=== PATIENT | female | born 1950 | race Caucasian/White ===

== ENCOUNTER 2016-11-15 11:14 | Inpatient (IN) | payer OTHER ==
[2016-10-14 11:06] VITALS: BMI 28.0
--- NOTE | 2016-10-14 11:33 | PAT Medication Instructions ---
Service Date Oct 14, 2016. Current Home Medication List B-Complex W/ Folic Acid (Super B Complex Maxi), 1 TAB PO QPM Cholecalciferol (Vitamin D3), 1 TAB PO QPM Fish Oil (Ankeny-3), 2 CAP PO QPM Hydroxyzine Pamoate (Vistaril), 1 CAP PO PRN Multivitamin (Multivitamin), 1 TAB PO QPM Sennosides-Docusate Sodium (Stool Softener), 1 TAB PO PRN Tramadol (Ultram), 50-100 MG PO Q4-6H Medication Instructions For Your Scheduled Surgery - Hold the following medications 2 weeks prior to surgery: Fish Oil (Ankeny-3), 2 CAP PO QPM - Take the following medications the morning of surgery with a sip of water OTHERWISE NOTHING TO EAT OR DRINK AFTER MIDNIGHT: Tramadol (Ultram), 50-100 MG PO Q4-6H (may take up to 4 hours prior to surgery if needed) - Take the following medications as scheduled the night before surgery: Multivitamin (Multivitamin), 1 TAB PO QPM B-Complex W/ Folic Acid (Super B Complex Maxi), 1 TAB PO QPM Cholecalciferol (Vitamin D3), 1 TAB PO QPM Hydroxyzine Pamoate (Vistaril), 1 CAP PO PRN Sennosides-Docusate Sodium (Stool Softener), 1 TAB PO PRN Tramadol (Ultram), 50-100 MG PO Q4-6H If you have any questions please call us at [phone] (Hoda Johnson PA-C) or [phone] or [phone]
--- NOTE | 2016-10-14 12:41 | DIAGNOSTIC IMAGING REPORT ---
CHEST PREADMISSION(PA/LAT) CLINICAL HISTORY: Preoperative evaluation. COMPARISON STUDY: No previous studies for comparison. FINDINGS: Lung volumes are normal. Lungs are clear. There is no pneumothorax or pleural effusion. Pulmonary vascularity is normal. Cardiac size is normal. Mediastinal contours are normal. There are cholecystectomy clips. IMPRESSION: No acute cardiopulmonary findings. Electronically signed by: Akin Moody M.D. 10/14/2016 12:39 PM Dictated Date/Time: 10/14/2016 12:38 PM
[2016-10-14 12:51] LABS: BASO % 0.4 %; BASO ABS # 0.04 K/uL (0-0.2); COMPLETE YES; EOS % 0.5 %; HEMATOCRIT 41.1 % (37-47); IG% 0.2 %; LYMPH % 22.1 %; LYMPH ABS # 2.31 K/uL (1.2-3.4); MEAN CELL VOLUME 92.6 fL (80-100); MEAN CORPUSCULAR HEMOGLOBIN 31.8 pg (25-34); MEAN CORPUSCULAR HGB CONC 34.3 g/dl (32-36); MONO % 9.5 %; NEUT % 67.3 %; PLATELET COUNT 393 K/uL (130-400); RED BLOOD COUNT 4.44 M/uL (4.2-5.4); WHITE BLOOD COUNT 10.46 K/uL (4.8-10.8)
[2016-10-14 13:01] LABS: URINE APPEARANCE CLEAR (CLEAR); URINE BILIRUBIN NEG (NEG); URINE COLOR YELLOW; URINE EPITHELIAL CELL AUTO >30 /lpf (0-5); URINE NITRITE NEG (NEG); URINE SPECIFIC GRAVITY 1.013 (1.000-1.030); UROBILINOGEN NEG (NEG); ZZUR CULT IF INDIC CLEAN CATCH YES
[2016-10-14 13:06] LABS: MANUAL MICROSCOPIC REQUIRED? NO; REVIEW REQ? NO
[2016-10-14 13:09] LABS: PARTIAL THROMBOPLASTIN RATIO 1.1; PROTHROMBIN TIME (PATIENT) 10.3 SECONDS (9.0-12.0)
[2016-10-14 13:51] LABS: BUN/CREATININE RATIO 21.4 (10-20); CALCIUM 9.6 mg/dl (8.5-10.1); CREATININE 0.75 mg/dl (0.60-1.20); POTASSIUM 4.8 mmol/L (3.5-5.1)
--- NOTE | 2016-11-12 10:14 | HISTORY & PHYSICAL EXAMINATION ---
DATE OF ADMISSION: 11/15/2016 CHIEF COMPLAINT: Bilateral knee pain. HISTORY OF PRESENT ILLNESS: Ms. Holloway is a 66-year-old female with a multiple-year history of pain in both of her knees. She states the right is worse than the left. She rates her pain a 10/10. She has pain with her daily activities. She has limited standing and walking tolerance. Pain is worse with weightbearing. The patient has had injections, tramadol, anti-inflammatories and bracing without relief. She has failed conservative treatment and is scheduled for right knee replacement. PAST MEDICAL HISTORY: Benign. She denies heart disease, diabetes or DVT. PAST SURGICAL HISTORY: Cholecystectomy. SOCIAL HISTORY: The patient denies alcohol use. She smokes quarter pack of cigarettes x45 years. She lives in a single story home. She is and retired. FAMILY HISTORY: The patient is adopted. MEDICATIONS: Tramadol 50 mg p.r.n., multivitamin 1 daily, vitamin D3 1000 international units daily, fish oil 1200 mg 2 daily, super B complex 1 daily, stool softener p.r.n., hydroxyzine 25 mg p.r.n. ALLERGIES: Antibiotic ointment causes redness. REVIEW OF SYSTEMS: See HPI. Ten other systems reviewed, all negative. PHYSICAL EXAMINATION: VITAL SIGNS: Height 5 foot 4, weight 162 pounds. BMI is 28. GENERAL: This is a well-developed, well-nourished female who is alert and oriented x3. Mood and affect are appropriate. HEAD, EYES, EARS, NOSE, AND THROAT: Normocephalic, atraumatic. Mucous membranes are moist and intact. NECK: Supple without lymphadenopathy. HEART: Regular rate and rhythm without murmurs, rubs or gallops. LUNGS: Clear to auscultation without wheezes or rhonchi. ABDOMEN: Soft and nontender. Bowel sounds are equal and active. EXTREMITIES: No ecchymosis, redness or warmth. She has varus deformity. Range of motion is from 5-105 degrees with +1 to 2 laxity. X-RAY EXAMINATION: AP and lateral views show joint space narrowing and osteophyte formation. IMPRESSION: Degenerative joint disease, right knee. PLAN: The patient will be admitted for a right total knee arthroplasty. We will plan on aspirin for DVT prophylaxis. The patient is doing [facility] for home physical therapy.
[~2016-11-15] VITALS: Ht 162.6 cm; Wt 73.6 kg
[2016-11-15] VITALS (9 sets, daily range): BP systolic 102–132; BP diastolic 59–82; PULSE 60–83; TEMP 36.4–36.7; O2SAT 92–98; Ht 162.6 cm; Wt 73.6 kg
[2016-11-15] MEDS: TRANEXAMIC ACID INJ 1,000 MG in SODIUM CHLORIDE 0.9% 100ML 100 ML IV SCH ×2 (06:30→15:14)
[~2016-11-15 11:14] MED LIST: ACETAMINOPHEN 500 MG TAB PO SCH; ATROPINE SULFATE 0.1 MG/ML 5ML SYR IV PRN; B-CO-25 PO; BUPIVACAINE 0.25% 30 ML VIAL ONE; BUPIVACAINE 0.5 % 5 MG/1 ML PF 10ML VIAL ONE; CEFAZOLIN 2000 MG/60 ML D5W 60 ML IV SCH; CHOL1000 PO; CeleBREX 200 MG CAP PO SCH; DEXAMETHASONE 4 MG TAB PO SCH; EpHEDrine SULFATE INJ 50 MG/ML AMP IV PRN; FAMOTIDINE 20 MG TAB PO SCH; FENTANYL CITRATE INJ 50 MCG/1 ML 2 ML VIAL IV PRN; GABAPENTIN 300 MG CAP PO SCH; HYDR25CA PO; LACTATED RINGER'S 1000ML 1,000 ML IV SCH; LACTATED RINGER'S 1000ML 500 ML IV ONE; METOCLOPRAMIDE HCL 10 MG TAB PO SCH; MULT-506 PO; OMEG10007 PO; ONDANSETRON INJ 2 MG/ML 2 ML VIAL IV PRN; OXYCODONE HCL 10 MG TABCR (OXYCONTIN) PO SCH; POLYMYXIN B SULFATE 100,000 UNITS in NSS 100ML IR SCH; ROPIVACAINE 5MG/ML 30 ML 150 MG, BUPIVACAINE/EPINEPHR 0.5% MPF 30 ML, KETOROLAC TROMETH... INFIL SCH; SENNTAB23 PO; TRAM-10 PO; VANCOMYCIN INJ 400 MG in NSS 100ML IR SCH
[2016-11-15] MEDS ORDERED: LIDOCAINE HCL 2% 2 ML VIAL (20MG/ML) ONE (13:30)
[2016-11-15] MEDS ORDERED: MIDAZOLAM HCL 1 MG/ML 2ML VIAL ONE (13:30)
[2016-11-15] MEDS ORDERED: PROPOFOL IV EMULSION 10 MG/ML 20 ML VIAL IV ONE (13:30)
[2016-11-15] MEDS ORDERED: FENTANYL CITRATE INJ 50 MCG/1 ML 2 ML VIAL ONE (13:30)
--- NOTE | 2016-11-15 13:47 | History & Physical Bridge Note ---
H&P Re-Evaluation Bridge Note: I have examined the patient, reviewed the History & Physical and in the interval since the performance of the History & Physical I have noted the following changes of clinical significance: No changes noted
[2016-11-15] MEDS ORDERED: BUPIVACAINE/EPINEPHRINE 0.25% 1:200,000 30 ML VIAL ONE (14:18)
[2016-11-15] MEDS ORDERED: ORTHO JOINT ANESTHETIC ONE (14:18)
[2016-11-15] MEDS ORDERED: BACITRACIN 50000 UNIT VIAL ONE (14:18)
[2016-11-15] MEDS ORDERED: POVIDONE-IODINE OP SOLN 30 ML BTL ONE (14:18)
--- NOTE | 2016-11-15 16:33 | [facility] Post Operative Brief Note ---
Immediate Operative Summary Operative Date Nov 15, 2016. Pre-Operative Diagnosis degenerative joint disease, right knee Post-Operative Diagnosis same Procedure(s) Performed right total knee arthroplasty, cemented Surgeon Dr. Avelina Willson [employer] Associate Surgeon(s) Hannah Benavides PA-C Estimated Blood Loss 75ml Findings DJD Specimens A. right knee bone and tissue, permanent Complication(s) None Disposition Recovery Room / PACU
[2016-11-15] MEDS ORDERED: BISACODYL 10 MG SUPP PR PRN (16:45)
[2016-11-15] MEDS ORDERED: TRAMADOL HCL 50 MG TAB PO PRN ×2 (16:45)
[2016-11-15] MEDS ORDERED: MoRPHine SULFATE 2 MG/ML CARP IV PRN (16:45)
[2016-11-15] MEDS ORDERED: ONDANSETRON INJ 2 MG/ML 2 ML VIAL IV PRN (16:45)
[2016-11-15] MEDS ORDERED: METOCLOPRAMIDE HCL INJ 5 MG/ML 2 ML VIAL IV PRN (16:45)
[2016-11-15] MEDS ORDERED: hydrOXYzine HCL 25 MG TAB PO PRN ×2 (16:45→19:45)
[2016-11-15] MEDS ORDERED: ZOLPIDEM TARTRATE 5 MG TAB PO PRN (16:45)
[2016-11-15] MEDS ORDERED: SOD PHOSPHATE/SOD BIPHOSPHATE ENEMA 132 ML BTL PR PRN (16:45)
[2016-11-15] MEDS ORDERED: KETOROLAC TROMETHAMINE 15 MG/ML VIAL IV. PRN (16:45)
[2016-11-15] MEDS ORDERED: DiphenhydrAMINE HCL 50 MG/ML VIAL IV PRN (16:45)
[2016-11-15] MEDS ORDERED: ALUMINUM/MAGNESIUM/SIMETH (MAALOX MAX) 30 ML UDC PO PRN (16:45)
[2016-11-15] MEDS ORDERED: MAGNESIUM HYDROXIDE SUSP 30 ML UDC PO PRN (16:45)
--- NOTE | 2016-11-15 17:26 | Anesthesiology Progress Note ---
Anesthesia Post Op Note Date & Time Nov 15, 2016 at 17:26 Vital Signs Pain Intensity: 0 Vital Signs Past 12 Hours Date Time Temp Pulse Resp B/P Pulse Ox O2 Delivery O2 Flow Rate FiO2 11/15/16 17:10 70 19 113/63 96 Nasal Cannula 2 11/15/16 17:01 36.3 74 16 106/63 97 Nasal Cannula 2 11/15/16 11:36 36.6 83 18 132/82 97 Room Air Notes Mental Status: alert / awake / arousable, participated in evaluation Pt Amnestic to Procedure: Yes Nausea / Vomiting: adequately controlled Pain: adequately controlled Airway Patency, RR, SpO2: stable & adequate BP & HR: stable & adequate Hydration State: stable & adequate Neuraxial Anesthesia: was administered, sensory block is resolving Anesthetic Complications: no major complications apparent
--- NOTE | 2016-11-15 17:27 | DIAGNOSTIC IMAGING REPORT ---
TWO VIEWS RIGHT KNEE CLINICAL HISTORY: Postoperative examination. FINDINGS: AP and crosstable lateral portable views of the right knee are obtained. A right knee arthroplasty is in near anatomic alignment. There has been undersurface remodeling of the patella. No acute fracture is seen. There are expected postoperative changes around the knee including a surgical drain, soft tissue edema, and subcutaneous gas. IMPRESSION: Expected postoperative changes status post right knee arthroplasty. No acute fracture is seen. Electronically signed by: Tre Sosa M.D. 11/15/2016 5:25 PM Dictated Date/Time: 11/15/2016 5:25 PM
[2016-11-15] MEDS: D5W AND 1/2NSS + 20MEQ KCL 1,000 ML IV SCH (19:33)
[2016-11-15] MEDS: OXYCODONE HCL 10 MG TABCR (OXYCONTIN) PO SCH (20:42)
[2016-11-15] MEDS ORDERED: CHOLECALCIFEROL 1000 INTER.UNIT TAB PO SCH (21:00)
[2016-11-15] MEDS ORDERED: SENNA 8.6 MG TAB PO SCH (21:00)
[2016-11-15] MEDS: ASPIRIN 81 MG ECTAB PO SCH (21:03)
[2016-11-15] MEDS: ACETAMINOPHEN 500 MG TAB PO SCH (21:04)
--- NOTE | 2016-11-15 21:58 | OPERATIVE REPORT ---
DATE OF OPERATION: 11/15/2016 PREOPERATIVE DIAGNOSIS: Degenerative arthritis, right knee. POSTOPERATIVE DIAGNOSIS: Same. PROCEDURE: Right total knee with patient matched implant. SURGEON: Dr. Willson. TIRE LAYER: SENDY Rosario. ANESTHESIA: Spinal. BLOOD LOSS: 75 mL. REPLACEMENT FLUIDS: 1600 mL crystalloid. DRAINS: Hemovac x2. CULTURES: None. COMPLICATIONS: None. COMPONENTS USED: [employer] Knee System: Femur size 5, tibia size 4 x 10, patella size 35. NOTE: SENDY Rosario was present and assisted throughout due to the complicated nature of this case. He helped with preparation and set up, first assisted throughout and personally closed the capsule, subcutaneous and skin layers and applied the postoperative dressing. DESCRIPTION: Following satisfactory spinal, the patient was supine. A tourniquet was placed but not inflated. The lower extremity was prepared with ChloraPrep and draped sterilely. Following a surgical time-out, a midline incision was made with a trivector approach, the knee showed severe grade 4 changes throughout and the anterior cruciate ligament was essentially nonexistent. The posterior cruciate ligament was excised, the patient matched femoral block was applied, femoral distal rotation and resection were set and completed and the 4-in-1 block was used to finish preparation of the femur. The patient matched tibial block was applied. Tibial resection was completed and patella was freehand cut. Soft tissue balancing was completed and a trial reduction showed good tensioning stability on the collateral ligaments, stable range of motion, and the patella tracked well. The trial components were removed, capsule was prepared with the orthopedic cocktail and after irrigation the components were cemented with Simplex G cement. When the cement had hardened, the knee was checked and showed good stability. A Betadine soak was then irrigated. Two drains were placed. The arthrotomy was closed with a running suture of 0 V-Loc, subcutaneous tissues with 2-0 Vicryl and the skin with a running subcuticular stitch of 3-0 V-Loc. Dermabond and a dry dressing were applied. The patient was returned to her bed in stable condition. I attest to the content of the Intraoperative Record and any orders documented therein. Any exceptio ns are noted below.
[2016-11-15] MEDS: OXYCODONE HCL IR 5 MG TAB (IMMEDIATE RELEASE) PO PRN (22:13)
[2016-11-15] MEDS ORDERED: TRANEXAMIC ACID INJ 1,000 MG in SODIUM CHLORIDE 0.9% 100ML 100 ML IV ONE (22:30)
[2016-11-15] MEDS: CEFAZOLIN IV 1,000 MG in DEXTROSE 5% 50ML 50 ML IV SCH (23:23)
[2016-11-16] MEDS: OXYCODONE HCL IR 5 MG TAB (IMMEDIATE RELEASE) PO PRN ×3 (02:17→11:39)
[2016-11-16 03:45] VITALS: BP 117/71; PULSE 68; TEMP 36.5; O2SAT 97
[2016-11-16] MEDS: D5W AND 1/2NSS + 20MEQ KCL 1,000 ML IV SCH (05:36)
[2016-11-16] MEDS: ACETAMINOPHEN 500 MG TAB PO SCH (05:37)
[2016-11-16 05:54] LABS: HEMATOCRIT 34.1 % (37-47); MEAN CELL VOLUME 92.9 fL (80-100); MEAN CORPUSCULAR HEMOGLOBIN 31.3 pg (25-34); MEAN CORPUSCULAR HGB CONC 33.7 g/dl (32-36); MEAN PLATELET VOLUME 8.9 fL (7.4-10.4); PLATELET COUNT 347 K/uL (130-400); RED BLOOD COUNT 3.67 M/uL (4.2-5.4); WHITE BLOOD COUNT 20.79 K/uL (4.8-10.8)
[2016-11-16 06:28] LABS: BUN/CREATININE RATIO 18.3 (10-20); CALCIUM 8.7 mg/dl (8.5-10.1); CREATININE 0.71 mg/dl (0.60-1.20); POTASSIUM 3.9 mmol/L (3.5-5.1)
[2016-11-16 07:28] VITALS: BP 136/82; PULSE 70; TEMP 36.3; O2SAT 100
--- NOTE | 2016-11-16 07:44 | Orthopedic Progress Note ---
Orthopedic Progress Note Date of Service Nov 16, 2016. Subjective Post OP Day: 1 Reports: feeling well, pain controlled w PO medications, Denies: SOB, complaints , light headedness, nausea / vomiting Objective calves soft nontender, N/V intact, dressing C/D/I, A&O x3, toes mobile, hemovac drainage (225 LAST SHIFT ) Date Time Temp Pulse Resp B/P Pulse Ox O2 Delivery O2 Flow Rate FiO2 11/16/16 07:28 36.3 70 19 136/82 100 Room Air 11/16/16 03:45 36.5 68 18 117/71 97 Room Air 11/15/16 23:20 36.7 67 18 114/65 96 Room Air 11/15/16 20:51 36.6 71 16 103/61 94 Nasal Cannula 11/15/16 19:51 36.4 73 16 118/72 92 Room Air 11/15/16 19:30 Room Air 11/15/16 18:50 36.4 69 16 102/59 96 Nasal Cannula 2.0 11/15/16 18:31 36.5 60 14 112/68 98 Nasal Cannula 3.0 11/15/16 18:09 97 Nasal Cannula 2.0 11/15/16 18:03 97 Nasal Cannula 2.0 11/15/16 18:00 36.4 64 16 111/59 97 Nasal Cannula 2.0 11/15/16 17:30 36.2 69 16 110/53 97 Nasal Cannula 2 11/15/16 17:20 69 16 117/55 96 Nasal Cannula 2 11/15/16 17:10 70 19 113/63 96 Nasal Cannula 2 11/15/16 17:01 36.3 74 16 106/63 97 Nasal Cannula 2 11/15/16 11:36 36.6 83 18 132/82 97 Room Air Laboratory Results 24 Hours: Test 11/16/16 05:30 Hematocrit 34.1 % Hemoglobin 11.5 g/dL Assessment & Plan Assessment: POD 1 TKA Plan: HOME W [facility] HE[facility] LEAVE DRAIN IN UNTIL TOMOORROW Inhouse Planning Pain Management: Celebrex, Oxycontin, PO Tylenol, Oxy IR DVT Prophylaxis: TEDs, SCDs, ASA Discharge Planning Discharge Planning: home with home health Pain Management: Celebrex, Oxycontin, PO Tylenol, Oxy IR DVT Prophylaxis: TEDs, ASA
--- NOTE | 2016-11-16 07:55 | Discharge Instructions ---
Discharge Instructions Admission Reason for Admission: Right Knee Arthritis Discharge Discharge Diagnosis / Problem: sp right TKA Discharge Goals Goal(s): Decrease discomfort, Improve function, Increase independence Activity Recommendations Activity Limitations: per Instructions/Follow-up section . Instructions / Follow-Up Instructions / Follow-Up ACTIVITY RECOMMENDATIONS: SELF CARE INSTRUCTIONS AFTER TOTAL KNEE REPLACEMENT A. You may need to continue a physical therapy program after discharge from the hospital. There are several options available to you. Your doctor will assist you in selecting the best one for you. 1. An out-patient facility 2 to 3 times a week for therapy or home therapy. 2. Continue working on all exercises taught to you in the hospital. Your goals should be to increase bending of your knee to 90 degrees and beyond and to fully straighten your knee. B. You may progress at your own pace from walking with a walker or crutches to a cane; then to no assistive devices. C. Make walking a part of your daily routine. Be up as much as comfortable with rest periods throughout the day. Rest with leg elevation is very important. Use the ice wrap frequently for the first 3-4 weeks. D. There are no restrictions on activities. You may ride in a car, shop, participate in brick pointer and all social activities. E. Wear the long elastic stockings (TITA hose) 20 hours a day for 2 weeks after surgery. They can be removed several times a day for laundering and for a bath. F. You may shower, no tub baths until cleared by your doctor. SPECIAL CARE INSTRUCTIONS: VERY IMPORTANT TO READ AND REVIEW A. There are a few signs you need to watch for after you are home. Call [facility] if you notice any of the followin. Increased severe knee pain. Some pain is expected especially when you exercise. 2. Increased swelling in your leg or knee; pain or swelling of the calf muscle in either lower leg. 3. Any fluid drainage from the incision. 4. Shortness of breath or chest pain. B. Please call [facility] at if you have any concerns or questions about your operation or recovery. The doctor or his nurse will return your call promptly. C. You must take antibiotics before dental work, bladder, bowel or other surgery. Your doctor will provide you with a permanent care to carry describing this precaution. IMPORTANT: * REMEMBER TO TAKE ASPIRIN, 81 MG, TWICE DAILY FOR 4 WEEKS UNLESS OTHERWISE DIRECTED. THIS IS YOUR BLOOD THINNER. * HIGH RISK PATIENTS MAY BE PRESCRIBED A STRONGER BLOOD THINNER. THIS WILL BE PROVIDED AT DISCHARGE. * CALL IF INCREASED PAIN, REDNESS, DRAINAGE OR FEVER GREATER THAT 101. * WEAR TITA HOSE 20 HOURS PER DAY FOR 2 WEEKS. DERMABOND Prineo- This is a mesh tape dressing that is covered with glue. It should remain in place until the incision is properly healed, usually 10-14 days. This dressing is designed to naturally slough off. You may trim the excess mesh tape as it peels off. Incision may be briefly wet in a shower. Dry immediately by blotting with a clean, dry towel. Do not bath or swim until instructed by your doctor. Do not scratch, rub, or pick at the dressing. Do not apply any topical ointments or lotions until dressing is completely removed and/or instructed by your doctor. There may be a small piece of suture material at one end of your incision. Do not pull or trim this. If it is bothersome or catching on clothing, you may cover it with a band-aid. FOLLOW UP VISIT: If appointment is not already scheduled: Please call [facility] to make a follow-up appointment for 2 weeks after your surgery at . Current Hospital Diet Patient's current hospital diet: Regular Diet Discharge Diet Recommended Diet: Regular Diet Procedures Procedures Performed: right total knee arthroplasty, cemented Pending Studies Studies pending at discharge: no Medical Emergencies . Who to Call and When: Medical Emergencies: If at any time you feel your situation is an emergency, please call 911 immediately. . Non-Emergent Contact Non-Emergency issues call your: Primary Care Provider . "Provider Documentation" section prepared by Janine Hartley. VTE Core Measure Inpt VTE Proph given/why not?: Other Anticoagulation, T.E.D. Stockings, SCD's
[2016-11-16] MEDS ORDERED: ASPEC81 PO (07:57)
[2016-11-16] MEDS ORDERED: RXC5 PO (07:57)
[2016-11-16] MEDS ORDERED: CLB200 PO (07:57)
[2016-11-16] MEDS ORDERED: ACET-1138 PO (07:57)
[2016-11-16] MEDS ORDERED: ONDA8TAB6 PO (07:57)
[2016-11-16] MEDS: CEFAZOLIN IV 1,000 MG in DEXTROSE 5% 50ML 50 ML IV SCH (08:21)
[2016-11-16] MEDS: ASPIRIN 81 MG ECTAB PO SCH (08:30)
[2016-11-16] MEDS: OXYCODONE HCL 10 MG TABCR (OXYCONTIN) PO SCH (08:30)
[2016-11-16] MEDS ORDERED: PANTOprazole SOD 40 MG TAB PO SCH (09:00)
[2016-11-16] MEDS ORDERED: MULTIVITAMIN TAB PO SCH (09:00)
[2016-11-16] MEDS ORDERED: MORP-157 PO (09:29)
[2016-11-16 10:49] VITALS: BP 133/70; PULSE 78; TEMP 36.6; O2SAT 94
[2016-11-16 12:05] VITALS: BP 133/70; PULSE 78; TEMP 36.6; O2SAT 94
--- NOTE | 2016-11-17 15:53 | DISCHARGE SUMMARY ---
DISCHARGE DIAGNOSIS: Degenerative joint disease, right knee. CONSULTS: None. COMPLICATIONS: None. PROCEDURES: Right total knee arthroplasty performed by Dr. Tyler Willson on 11/15/2016. BRIEF HISTORY: As dictated in the history and physical. HOSPITAL SUMMARY: The patient was admitted on the above date and had the above-noted surgery performed which she tolerated well. On the first postoperative day, she was feeling well, pain was controlled. She had no complaints. Calves were soft and nontender, neurovascularly intact. Dressings clean, dry and intact. Toes were mobile. Vital signs stable and she was afebrile. Hemoglobin was 11.5 and she was started on physical therapy protocol and continued on DVT prophylaxis and pain management. Plans were for her to be discharged to home with home health services. She was progressing well with her physical therapy, ambulating well over 250 feet with a rolling walker. She had obtained 87 degrees of flexion and it was felt that she could be discharged to home on 11/16/2016. For further review, please see chart. LAB AND X-RAY DATA: As per chart. DISCHARGE INSTRUCTIONS: The patient was discharged to home in satisfactory condition on 11/16/2016. DIET: Regular. ACTIVITY: Follow TK instruction sheets and special care instructions as noted. Follow up with Dr. Tyler Willson in 2 weeks. The patient to call for appointment if one has not been made for you. DISCHARGE MEDICATIONS: Acetaminophen 1000 mg p.o. q. 8 hours, aspirin 81 mg p.o. b.i.d., Celebrex 200 mg p.o. b.i.d., MS Contin 15 mg p.o. q. 12 hours, Zofran 8 mg p.o. q. 8 hours p.r.n., oxycodone 5-10 mg p.o. q. 4 hours p.r.n., resume Super B-Complex tablet 1 tab p.o. q.p.m., vitamin D3 one tab p.o. q.p.m., fish oil 2 caplets p.o. q.p.m., Vistaril 25 mg p.o. p.r.n. and multivitamin 1 tab p.o. q.p.m. and stool softener 1 tab p.o. p.r.n. Stop taking tramadol.
[2016-11-17] MEDS ORDERED: CeleBREX 200 MG CAP PO SCH (21:00)
[2016-12-01] MEDS ORDERED: OXYC1CAP5 PO (11:10)
[2016-12-01] MEDS ORDERED: ASPI81TA28 PO (11:10)
== END 2016-11-16 12:52 | disposition home health service (06) | DRG 470 ==
LOC: ENRESERVTM → ENRESERVDT → C.ACU 11:14 → C.3E 12:00
PROVIDERS: ADMIT Orthopaedic Surgery; ATTEND Orthopaedic Surgery
PROC: 0SRC0J9 Replacement of Right Knee Joint with Synthetic Substitute, Cemented, Open Approach (ICD-10-PCS; principal; 2016-11-15 13:30)
DX: M17.11 Unilateral primary osteoarthritis, right knee (principal); F17.210 Nicotine dependence, cigarettes, uncomplicated; M25.562 Pain in left knee; F40.240 Claustrophobia; M54.5 Low back pain; Z79.899 Other long term (current) drug therapy; Z79.891 Long term (current) use of opiate analgesic

== ENCOUNTER → 2017-02-02 | Outpatient (CLI) | payer OTHER ==
[~2017-02-02] MED LIST changes: -ACETAMINOPHEN 500 MG TAB PO SCH; +ASPI81TA28 PO; -ATROPINE SULFATE 0.1 MG/ML 5ML SYR IV PRN; -BUPIVACAINE 0.25% 30 ML VIAL ONE; -BUPIVACAINE 0.5 % 5 MG/1 ML PF 10ML VIAL ONE; -CEFAZOLIN 2000 MG/60 ML D5W 60 ML IV SCH; -CeleBREX 200 MG CAP PO SCH; -DEXAMETHASONE 4 MG TAB PO SCH; -EpHEDrine SULFATE INJ 50 MG/ML AMP IV PRN; -FAMOTIDINE 20 MG TAB PO SCH; -FENTANYL CITRATE INJ 50 MCG/1 ML 2 ML VIAL IV PRN; -GABAPENTIN 300 MG CAP PO SCH; -LACTATED RINGER'S 1000ML 1,000 ML IV SCH; -LACTATED RINGER'S 1000ML 500 ML IV ONE; -METOCLOPRAMIDE HCL 10 MG TAB PO SCH; -ONDANSETRON INJ 2 MG/ML 2 ML VIAL IV PRN; +OXYC1CAP5 PO; -OXYCODONE HCL 10 MG TABCR (OXYCONTIN) PO SCH; -POLYMYXIN B SULFATE 100,000 UNITS in NSS 100ML IR SCH; -ROPIVACAINE 5MG/ML 30 ML 150 MG, BUPIVACAINE/EPINEPHR 0.5% MPF 30 ML, KETOROLAC TROMETH... INFIL SCH; -TRAM-10 PO; -VANCOMYCIN INJ 400 MG in NSS 100ML IR SCH
--- NOTE | 2017-02-02 12:58 | DIAGNOSTIC IMAGING REPORT ---
MRI LUMBAR SPINE W/O CONTRAST CLINICAL HISTORY: Low back pain with right leg radiculopathy. TECHNIQUE: Sagittal and axial T1, T2 and STIR images were obtained. COMPARISON STUDY: No previous studies for comparison. OBSERVATIONS: The vertebral bodies and posterior elements appear intact. There is no abnormal bony signal present to suggest a marrow replacement process. L1-2: No disc protrusions or extrusions. No evidence of spinal canal or neural foraminal compromise. L2-3: No disc protrusions or extrusions. No evidence of spinal canal or neural foraminal compromise. L3-4: No disc protrusions or extrusions. No evidence of spinal canal or neural foraminal compromise. L4-5: No disc protrusions or extrusions. No evidence of spinal canal or neural foraminal compromise. L5-S1: No disc protrusions or extrusions. No evidence of spinal canal or neural foraminal compromise. The conus medullaris and cauda equina appear normal. 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 There are T2 bright foci within the kidneys, likely representing cysts. IMPRESSION: No disc herniations identified. No evidence of spinal or foraminal stenosis. Electronically signed by: Adelfo Palma M.D. 02/02/2017 12:57 PM Dictated Date/Time: 02/02/2017 12:54 PM
== END | disposition home or self-care (01) ==
LOC: C.MRIBC 11:55
PROVIDERS: ATTEND Pain Medicine Interventional Pain Medicine
DX: M54.16 Radiculopathy, lumbar region (principal)